=== PATIENT | female | born 1975 | race Caucasian/White ===

== ENCOUNTER → 2021-05-25 13:50 | Outpatient (CLI) | payer OTHER, SELFPAY ==
--- NOTE | ~2021-05-25 | XR_ITS ---
XR chest 2V DATE: 05/25/2021 14:01 INDICATION: Pre-procedural respiratory examination TECHNIQUE: 2 views COMPARISON: 10/24/2017 PA and lateral views FINDINGS: Normal heart size. No hilar or mediastinal enlargement. No pulmonary infiltrate or consol idation, pulmonary vascular congestion or pleural effusion or pneumothorax. IMPRESSION: Negative Reviewed, dictated and finalized at location B. IMPRESSION: Negative
== END ==
PROVIDERS: PCP Family Medicine; Visit Provider Physician Assistant
DX: Z01.811 Encounter for preprocedural respiratory examination (principal)
CPT/HCPCS: 71046

== ENCOUNTER 2022-05-03 14:52 | Emergency (ER) | payer OTHER, SELFPAY ==
[2022-05-03 15:00] VITALS: BP 141/79; PULSE 103; RESP 18; TEMP 36.3; O2SAT 97
--- NOTE | 2022-05-03 15:08 | ED.EAR ---
HPI - Ear Problem General Chief complaint: Ear Stated complaint: Ear Pain Time Seen by Provider: 05/03/22 15:08 Source: patient and RN notes reviewed Mode of arrival: ambulatory Limitations: no limitations History of Present Illness HPI Narrative: 46-year-old female presents to the [facility] with complaints of cannot hear out of both ears. Had recently seen primary care provider and was prescribed prednisone. States has not gotten any better. Patient states that she was instructed by her primary care doctor that if she was not better to come to the [facility]. Related Data Allergies Allergy/AdvReac Type Severity Reaction Status Date / Time No Known Allergies Allergy Verified 05/03/22 15:04 Review of Systems Review of Systems: All systems reviewed & are unremarkable except as noted in HPI and below Constitutional: Constitutional: Reports no additional constitutional complaints, Denies chills and Denies fever(s) Eyes: Eyes: Reports no additional eye complaints ENT: Reports as per HPI Cardiovascular: Cardiovascular: Reports no additional cardiovascular complaints Respiratory: Respiratory: Reports no additional respiratory complaints Gastrointestinal: Gastrointestinal: Reports no additional gastrointestinal complaints Musculoskeletal: Musculoskeletal: Reports no additional musculoskeletal complaints Integumentary/Breasts: Skin/Breast: Reports system reviewed and no additional complaints, except as docu Neurologic: Reports system reviewed and no additional complaints, except as documented Psychiatric: Psychiatric: Reports no additional psychiatric complaints Allergic/Immunologic: Allergic/Immunologic: Reports no additional allergic/immunologic complaints PMF Past Medical History Medical History Depression GERD (gastroesophageal reflux disease) Obese Psoriasis Rash Smoking Surgical History Surgical History (Updated 05/03/22 @ 15:36 by Michaela Fine APRN) No history of previous surgery Social History Social History Social History: Smoking packs per day: 0.5 Smoking cigarettes per day: 10.0 Years smoked: 0.5 Smoking pack-years: 0.25 Smoking status: Current every day smoker Tobacco type: cigarettes Alcohol intake: never Substance use: never Substance use type: does not use Gender identity (if verbalized by the patient): Female Sexual Orientation (if Verbalized by the Patient): Straight or Heterosexual Spiritual care concerns: No Comments At the time of my signature, I reviewed and agree with the nursing past medical, surgical, social, and family history. There is no relevant family history pertinent to the patient complaint. Exam Const: General: healthy appearing, no acute distress and alert Nutritional Appearance: well nourished Orientation/consciousness: patient oriented x3 Limitations: no limitations HENMT: Head: normal to inspection Ears: external ears normal, Abnormal EAC present cerumen impaction on the right and TM abnormal bulging bilateral and with fluid behind the TM bilateral; not erythematous Mouth: Yes Normal oral and palatal mucosa present Throat: posterior oropharynx normal Eyes: General: appearance normal, both eyes and all related structures Pupils: Equal, round and reactive pupils present Neck: Neck: normal visual inspection, no lymphadenopathy and no meningeal signs Chest: Chest palpation & inspection: normal inspection of the chest Resp: Effort & Inspection: normal respiratory effort and no use of accessory muscles Auscultation: clear to auscultation bilaterally, no crackles, no rales, no rhonchi and no wheezes Cardio: Rate: regular rate Rhythm: regular rhythm GI: GI Palp: Yes Soft to palpation and No Tenderness to palpation present (GI) Back/Spine/Pelvis: Cervical Spine: normal cervical lordosis Thoracic/Lumbar Spine: thoracic and lumbar spine normal to inspection Skin:
== END 2022-05-03 15:45 | disposition home or self-care (01) ==
PROVIDERS: Emergency Provider Nurse Practitioner; PCP Family Medicine
DX: H61.21 Impacted cerumen, right ear (principal); H69.93 Unspecified Eustachian tube disorder, bilateral; K21.9 Gastro-esophageal reflux disease without esophagitis; E66.9 Obesity, unspecified; Z68.43 Body mass index [BMI] 50.0-59.9, adult; F17.210 Nicotine dependence, cigarettes, uncomplicated; F32.A Depression, unspecified
CPT/HCPCS: 69209; 99213; G0463

== ENCOUNTER 2022-11-21 16:35 | Emergency (ER) | payer OTHER, SELFPAY ==
--- NOTE | ~2022-11-21 | CT_ITS ---
EXAMINATION: CT soft tissue neck w con DATE: 11/21/2022 20:26 INDICATION: Sore throat. TECHNIQUE: Computed tomography (CT) of the neck was performed with 75 mL Omnipaque-350 intravenous co ntrast. Automated exposure control and iterative reconstruction technique were employed. The dose-demarco gth product was 641.93 mGy-cm. COMPARISON: None FINDINGS: There is bilateral internal jugular chain lymphadenopathy. For example, a right mid interna l jugular chain node measures 1.7 x 2.4 cm. There is enlargement of the adenoids, palatine tonsils, a nd lingual tonsils. No abscess. There is mild mucosal thickening in the paranasal sinuses. There are bilateral otomastoid effusions. There is a carious lesion of tooth 31. There is mild cervical spondyl osis. IMPRESSION: 1. Enlargement of the adenoids, palatine tonsils, and lingual tonsils. No abscess. 2. Bilateral cervical lymphadenopathy. 3. Bilateral otomastoid effusions. 4. Carious lesion of tooth 31. Reviewed, dictated and finalized at location A. R OBSERVER IMPRESSION: 1. Enlargement of the adenoids, palatine tonsils, and lingual tonsils. No absce ss. 2. Bilateral cervical lymphadenopathy. 3. Bilateral otomastoid effusions. 4. Carious lesion of tooth 31.
--- NOTE | ~2022-11-21 | XR_ITS ---
EXAMINATION: XR chest 2V Exam Date/Time: 11/21/2022 16:45 PRINCIPAL LAW CLERK HISTORY: Cough/SOB x 3days. Comparison: 05/25/2021. RESULT: Lines, tubes, and devices: None. Lungs and pleura: Subtle reticular mid and lower lung opacities with cuffing. Cardiomediastinal silhouette: Stable. Other: No acute osseous or upper abdominal finding. IMPRESSION: Pulmonary opacities may represent bronchiolitis, as can be seen with atypical infection, asthma, aspi ration, and small airways disease. Reviewed, dictated and finalized at location K. CIPAL LAW CLERK IMPRESSION: Pulmonary opacities may represent bronchiolitis, as can be seen with atypical i nfection, asthma, aspiration, and small airways disease.
[2022-11-21 16:36] VITALS: BP 140/87; PULSE 94; RESP 22; TEMP 35.9; O2SAT 98
--- NOTE | 2022-11-21 16:37 | ECG_ITS ---
Measurements Intervals [place] Rate: 94 P: 32 LA: 126 QRS: 47 QRSD: 94 T: 36 QT: 341 QTc: 428 Interpretive Statements SINUS RHYTHM LOW QRS VOLTAGE IN PRECORDIAL LEADS [QRS DEFLECTION < 1.0 mV IN CHEST LEADS] ABNORMAL ECG NO PREVIOUS ECG AVAILABLE FOR COMPARISON Electronically Signed On 11-22-2022 10:02:40 NUCLEAR POWERPLANT MECHANIC by Rommel Davison M.D.
[2022-11-21 16:51] LABS: Basophils Percent Auto 0.3 % (0.2-1.2); Eosinophils Absolute Auto 0.4 K/mm3 (0-0.3); Eosinophils Percent Auto 2.7 % (0-4.4); Hematocrit 38.4 % (37.0-47.0); Hemoglobin 11.7 g/dL (12.0-15.0); Immature Granulocyte Absolute 0.09 K/mm3 (0.00-0.031); Immature Granulocyte Percent A 0.6 % (0-0.5); Lymphocytes Percent Auto 9.7 % (18.3-44.2); Mean Corpuscular HGB Conc 30.5 g/dl (32-36); Mean Corpuscular Volume 88.7 fl (80-100); Mean Platelet Volume 11.4 fl (7.4-10.4); Monocytes Absolute Auto 0.9 K/mm3 (0.1-0.6); Neutrophils Absolute Auto 12.5 K/mm3 (1.3-6.7); Neutrophils Percent Auto 80.7 % (45.5-73.1); Platelet Count Result 306 k/mm3 (150-375); Red Blood Count 4.33 M/mm3 (4.2-5.4); Red Cell Distribution Width 17.3 % (11.5-14.5); White Blood Count 15.5 K/mm3 (4.5-10.0)
[2022-11-21 17:01] LABS: Alanine Aminotransferase 25 U/L (6-35); Albumin Level 3.7 g/dL (3.5-5.1); Alkaline Phosphatase 104 U/L (38-126); Anion Gap 6 mmol/L (8-16); Aspartate Amino Transferase 25 U/L (14-36); Bilirubin,Total 0.3 mg/dL (0.2-1.3); Blood Urea Nitrogen 9 mg/dL (7-17); Calcium 8.5 mg/dL (8.4-10.2); Carbon Dioxide 28 mmol/L (22-30); Chloride 106 mmol/L (98-107); Estimated CRCL calculation 95 ml/min; Estimated Glomerular Filt Rate > 60; Glucose 123 mg/dL (65-110); Potassium 4.2 mmol/L (3.4-5.0); Sodium 140 mmol/L (137-145)
--- NOTE | 2022-11-21 19:39 | ED.SOB ---
HPI - SOB/Dyspnea General Chief Complaint: Shortness of Breath/Dyspnea Stated Complaint: SOB Time Seen by Provider: 11/21/22 19:10 Source: patient and RN notes reviewed Mode of arrival: ambulatory Limitations: no limitations History of Present Illness HPI Narrative: This is a 47 year old female with history of obesity and asthma who presents for evaluation of URI symptoms and shortness of breath. Patient states she developed sinus congestion, sore throat, cough for 3 days. She also reports right ear pain. She states she has been in bed for 3 days due to not feeling well. She reports shortness of breath. She states it is due to throat swelling and congestion. She denies chest pain. She has been taking mucinex and using albuterol nebs without relief. She denies any sick contacts. Related Data Allergies Allergy/AdvReac Type Severity Reaction Status Date / Time No Known Allergies Allergy Verified 05/03/22 15:04 Review of Systems Constitutional: Constitutional: Reports fatigue and Denies weakness ENT: Reports nasal congestion and Reports sore throat Cardiovascular: Cardiovascular: Denies syncope, Denies rapid heart rate, Denies irregular heart rhythm, Denies leg edema and Denies dyspnea Respiratory: Respiratory: Denies chest congestion, Reports cough, Denies hemoptysis, Denies excessive phlegm production and Reports dyspnea Gastrointestinal: Gastrointestinal: Denies abdominal pain, Denies hematochezia, Denies diarrhea and Denies vomiting Genitourinary: Genitourinary: Denies hematuria and Denies dysuria Musculoskeletal: Musculoskeletal: Denies joint swelling, Denies loss of height and Denies muscle weakness Neurologic: Denies syncope, Denies focal weakness and Denies weakness PMFSH Past Medical History Medical History Asthma Depression GERD (gastroesophageal reflux disease) Obese Psoriasis Rash Smoking Surgical History Surgical History No history of previous surgery Social History Social History Social History: Smoking packs per day: 0.5 Smoking cigarettes per day: 10.0 Years smoked: 0.5 Smoking pack-years: 0.25 Smoking status: Current every day smoker Tobacco type: cigarettes Alcohol intake: never Substance use: never Substance use type: does not use Living arrangements: with family Occupation/Education: unemployed Gender identity (if verbalized by the patient): Female Sexual Orientation (if Verbalized by the Patient): Straight or Heterosexual Spiritual care concerns: No Exam Const: General: alert Nutritional Appearance: obese Orientation/consciousness: patient oriented x3 Limitations: no limitations HENMT: Head: normal to inspection Ears: TM abnormal erythematous on the right Face and sinus: normal facial exam and sinuses nontender Mouth: Yes Abnormal oral and palatal mucosa present edematous Teeth and gingiva: dentition normal Throat: uvula midline and abnormal tonsil bilateral erythema and hypertrophy Eyes: EOM: EOMs intact bilaterally Neck: Neck: lymphadenopathy Chest: Chest palpation & inspection: normal inspection of the chest Resp: Effort & Inspection: normal respiratory effort Auscultation: clear to auscultation bilaterally Cardio: Rate: regular rate Rhythm: regular rhythm Heart sounds: no murmurs GI: GI Palp: Yes Soft to palpation, No Tenderness to palpation present (GI), No Guarding due to palpation present (GI) and No Rigid due to palpation Auscultation: normal bowel sounds Skin: General skin exam: normal color Rashes: no rashes Wounds: no wounds Neuro: General: patient oriented x3, moves all extremities and CN's II-XI intact bilaterally Extrem: General: normal to inspection Psych: Mental Status: mental status grossly normal Affect: normal affect Attitude: cooperative Course Course Emergency Course: Patient pr
[2022-11-21] MEDS: KETOROLAC 30 MG/ML VIAL (*BKC) IV PUSH (19:59)
[2022-11-21 20:14] LABS: Alveolar/Arterial O2 Gradient 21.6 mmHg; Base Excess ABG 1.9 mEq/l (+/-2.0); Carboxyhemoglobin 1.4 % THb (0-2.0); Fractional Inspired Oxygen 21 %; HCO3 ABG 25.8 mEq/l (22.0-26.0); Oxygen Content ABG 16.6 %vol (16.0-22.0); Oxygen Saturation ABG 96.6 % (95.0-100.0); PCO2 ABG 38.1 mmHg (35.0-45.0); PO2 ABG 82.5 mmHg (80.0-100.0); PO2 FiO2 Ratio Arterial Blood 3.93 %; Reduced Hemoglobin 3.6 %THb (0-5.0); Total Hemoglobin 12.4 g/dL (12.0-18.0); pH ABG 7.449 (7.350-7.450)
[2022-11-21 20:15] LABS: Device ROOM AIR; Modified Allen's Test Pass; Site Drawn RIGHT RADIAL
[2022-11-21 20:18] LABS: Strep Group A RT-PCR DETECTED (Negative)
[2022-11-21 20:33] LABS: Influenza A QL RT-PCR Negative (Negative); Influenza B QL RT-PCR Negative (Negative); RSV RNA, RT-PCR Negative (Negative); SARS-CoV-2 RNA PCR Negative
--- NOTE | 2022-11-21 20:48 | PC.NURSE ---
Pt reports nasal congestion that started 3 days ago. She has since developed fullness in her ears, decreased hearing more so than normal, and sore throat and swallowing difficulty. Voice is hoarse. Pt is maintaining her own secretions and no drooling noted.
[2022-11-21] MEDS: cefTRIAXone 2 GM in SODIUM CHLORIDE 0.9% IV 100 ML 200 ML IVPB (20:56)
[2022-11-21 21:55] VITALS: BP 115/79; PULSE 90; RESP 20; O2SAT 97
== END 2022-11-21 22:08 | disposition home or self-care (01) ==
PROVIDERS: Emergency Medicine; Emergency Provider General Practice; PCP Family Medicine
DX: J02.0 Streptococcal pharyngitis (principal); H66.91 Otitis media, unspecified, right ear; Z20.822 Contact with and (suspected) exposure to COVID-19
CPT/HCPCS: 36415; 36600; 70491; 71046; 80053; 82375; 82805; 83050; 85025; 87040; 87637; 87651; 93005; 96372; 96374; 96375; 99284; J1100; J1885; Q9967

== ENCOUNTER 2024-01-14 17:34 | Emergency (ER) | payer MEDICAID, SELFPAY ==
--- NOTE | ~2024-01-14 | XR_ITS ---
EXAMINATION: XR chest 2V DATE: 01/14/2024 18:24 INDICATION: Nonproductive cough TECHNIQUE: PA and lateral views of the chest are obtained. COMPARISON: 11/21/2022 FINDINGS: The lungs are free of acute opacities. No pleural effusion or pneumothorax. The cardiomedia stinal silhouette is normal. There is mild thoracic spondylosis. IMPRESSION: 1. No acute cardiopulmonary abnormality. Reviewed, dictated and finalized at location F.
[2024-01-14 17:46] VITALS: BP 136/66; PULSE 82; RESP 16; TEMP 36.6; O2SAT 99
[2024-01-14 17:48] VITALS: BP 136/66; PULSE 82; RESP 16; TEMP 36.6; O2SAT 99
--- NOTE | 2024-01-14 18:11 | ED.GENADULT ---
HPI - General Adult General Chief complaint: Upper Respiratory Infection Stated complaint: SOB,sore throat Source: patient Mode of arrival: ambulatory Limitations: no limitations History of Present Illness HPI narrative: Patient presents for evaluation of sick symptoms for last 2 days. Symptoms include cough, shortness of breath, sinus congestion, yellow nasal drainage and sore throat. No fever, chills, nausea, vomiting, diarrhea. She has an underlying history of asthma and smokes half a pack per day. She has decreased her cigarette use over the last few days secondary to frequent coughing. No recent sick contacts to her knowledge. She has a history of recurrent strep pharyngitis. She also has underlying DANY for which she uses a CPAP. Related Data Home Medications Medication Instructions Recorded Confirmed hydroxyzine HCl 25 mg tablet 25 mg PO BID 09/10/23 01/14/24 Allergies Allergy/AdvReac Type Severity Reaction Status Date / Time No Known Allergies Allergy Verified 10/09/23 13:02 Review of Systems Review of Systems: CONSTITUTIONAL: Denies fever, chills, or sweats. EYES: Denies visual changes, redness, or discharge. ENT: Reports sore throat, sinus congestion and yellow nasal discharge. Denies otalgia CARDIOVASCULAR: Denies chest pain, palpitations, or edema. RESPIRATORY: reports cough and shortness of breath. GASTROINTESTINAL: Denies abdominal pain, nausea, vomiting, or diarrhea. GENITOURINARY: Denies dysuria or hematuria. SKIN: Denies rash or itching. MUSCULOSKELETAL: Denies back pain, joint pain, or myalgia. NEUROLOGIC: Denies headache, numbness, dizziness, or weakness. PSYCHIATRIC: Denies anxiety or depression. [facility] Past Medical History Medical History Asthma Depression GERD (gastroesophageal reflux disease) Obese Psoriasis Rash Smoking Surgical History Surgical History No history of previous surgery Family History Family History Mother Unknown family medical history Social History Social History Social History: Smoking packs per day: 0.5 Smoking cigarettes per day: 10.0 Years smoked: 0.5 Smoking pack-years: 0.25 Smoking status: Current every day smoker Tobacco type: cigarettes Alcohol intake: never Substance use: never Substance use type: does not use Living arrangements: with family Occupation/Education: unemployed Gender identity (if verbalized by the patient): Female Sexual Orientation (if Verbalized by the Patient): Straight or Heterosexual Spiritual care concerns: No Exam Narrative: GENERAL: Well-appearing, well-nourished, and in no acute distress. HEAD: Normocephalic, atraumatic. EYES: PERRLA and EOMI. ENT: Nares clear, no rhinorrhea or epistaxis. Mucous membranes moist. There is posterior pharyngeal erythema without exudate. Uvula is midline. Bilateral TMs pearly helms nonbulging NECK: Supple. No adenopathy or masses. No carotid bruits or JVD. Large neck circumference. CHEST: Clear to auscultation. No respiratory distress. No wheezes rales or rhonchi HEART: Regular rate and rhythm. No murmur heard. Normal peripheral pulses. ABDOMEN: Soft, nontender, nondistended, normal active bowel sounds. EXTREMITIES: Normal range of motion. No edema. SKIN: Warm, dry, no rash. NEURO: No focal deficits. Alert and oriented x3. PSYCH: Normal mood and affect. Course Course Emergency Course: this is a 48-year-old female who presented for evaluation of sick symptoms. Strep negative. Chest x-ray negative. Given Decadron while here. exam is consistent with asthma triggered by viral URI. Will discharge with prednisone and albuterol. Increase hydration. Advised on smoking cessation. Follow up with primary provider. Go to the ER for worsening sym
[2024-01-14] MEDS: dexAMETHasone SOD PHOS INJ 10 MG/ML 1 ML VIAL BY MOUTH (18:17)
== END 2024-01-14 19:20 | disposition home or self-care (01) ==
PROVIDERS: Emergency Provider Nurse Practitioner; PCP Family Medicine
DX: J45.909 Unspecified asthma, uncomplicated (principal); J06.9 Acute upper respiratory infection, unspecified; G47.33 Obstructive sleep apnea (adult) (pediatric); F17.210 Nicotine dependence, cigarettes, uncomplicated; K21.9 Gastro-esophageal reflux disease without esophagitis; E66.9 Obesity, unspecified; Z68.43 Body mass index [BMI] 50.0-59.9, adult; L40.9 Psoriasis, unspecified
CPT/HCPCS: 71046; 87081; 87880; 99213; G0463; J1100

== ENCOUNTER 2025-02-23 11:29 | Outpatient (CLI) | payer OTHER, SELFPAY ==
--- NOTE | ~2025-02-23 | XR_ITS ---
3 VIEWS LUMBAR SPINE Ordering provider: Josh Rodriguez, [place] History: . Lbp . Comparison: None. FINDINGS: VERTEBRAL BODIES: No visible fracture or subluxation. DISK SPACES: Normal. SOFT TISSUES: Normal. IMPRESSION: No acute osseous abnormality lumbar spine. Reviewed, dictated and finalized at location A.
== END 2025-02-23 11:30 | disposition home or self-care (01) ==
LOC: MICIMG 11:31
PROVIDERS: PCP Family Medicine; Visit Provider Chiropractor Rehabilitation
DX: M54.50 Low back pain, unspecified (principal)
CPT/HCPCS: 72100

== ENCOUNTER 2025-03-12 14:17 | Emergency (ER) | payer OTHER, SELFPAY ==
[2025-03-12] VITALS (10 sets, daily range): BP systolic 110–138; BP diastolic 65–90; PULSE 67–77; RESP 15–24; TEMP 36.5–36.7; O2SAT 88–96
--- NOTE | ~2025-03-12 | XR_ITS ---
EXAMINATION: XR chest 2V 03/12/2025 15:17 INDICATION: Shortness of breath PROCEDURE: 2 view chest COMPARISON: Comparison to multiple prior studies sequentially, with oldest reviewed study dated 01/2019. FINDINGS: The lungs are clear. The cardiomediastinal silhouette is within normal limits. There are no pleural effusions. There is no pneumothorax suspected. IMPRESSION: 1: NO ACUTE CARDIOPULMONARY DISEASE. Reviewed, dictated and finalized at location B.
--- OUTSIDE RECORDS SUMMARY | 2025-03-12 14:20 | XMS_ITS | Clinical Summary ---
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
--- OUTSIDE RECORDS SUMMARY | 2025-03-12 14:20 | XMS_ITS | Clinical Summary ---
Author Organization [facility] Address [address] [place] [address] Care Team Providers Care Welder Gun Name Role Phone Misha Ann MD Primary Care Provider [phone] Allergies No known active allergies Medications No known medications Active Problems No known active problems Family History Medical History Relation Name Comments Heart Disease Father Heart Disease Mother Cancer Sister 1 Relation Name Status Comments Brother Alive Father Mother Alive Sister 1 Alive Sister 2 Alive Social History Tobacco Use Types Packs/Day Years Used Date Smoking Tobacco: Every Day Cigarettes 1 30 Smokeless Tobacco: Never Alcohol Use Standard Drinks/Week Comments Never 0 (1 standard drink = 0.6 oz pur e alcohol) Comments Unknown Sex and Gender Information Value Date Recorded Sex Assigned at Not on file Legal Sex Female 9:31 AM CDT Gender Identity Not on file Sexual Orientation Not on file Last Filed Vital Signs Vital Sign Reading Time Taken Comments Blood Pressure 126/78 08/17/2019 1:31 PM CDT Pulse 87 08/17/2019 1:31 PM CDT Temperature 36.8 C (98.2 F) 08/17/2019 1:31 PM CDT Respiratory Rate - - Oxygen Saturation 97% 08/17/2019 1:31 PM CDT Inhaled Oxygen Concentration - - Weight 126.6 kg (279 lb) 08/17/2019 1:31 PM CDT Height 152.4 cm (5') 08/17/2019 1:31 PM CDT Body Mass Index 54.49 08/17/2019 1:31 PM CDT Plan of Treatment Health Maintenance Due Date Last Done Comments DTAP/TDAP/TD VACCINES (1 - Tdap) 1996 HEPATITIS B VACCINES (1 of 3 - 19+ 3-dose series) 05/22 HPV/Cotest (21-29) 1998 CERVICAL CANCER SCREENING 2007 HPV/Cotest (30-65) 2007 PAP SMEAR 2007 BREAST CANCER SCREENING 2017 COLORECTAL SCREENING 2022 Colorectal Cancer Screening 2022 FIT-DNA Q 3 years 2022 FIT/FOBT Q 1 year 2022 Flex Sig/CT Colonography Q 5 years 2022 INFLUENZA VACCINE (#1) 2024 Care Teams Welder Gun Relationship Specialty Start Date End Date Misha Ann MD [address] [facility] [address] [place] [id number] PCP - General Family Practice 07/23/19
--- OUTSIDE RECORDS SUMMARY | 2025-03-12 14:20 | XMS_ITS | Clinical Summary ---
Author Organization [facility] [employer] Address [address] [place] [address] Care Team Providers Care Ground Services Instructor Name Role Phone Unavailable Primary Care Provider Unavailabl e Source Comments [facility] [employer],non-owned Affiliates and Associated Physician Practices is amultiple site organization consisting of ambulatory clinics and hospital sitesin [place], [place], [place] and [place]. This disclosure is being madepursuant to the Care Everywhere program and may not contain all information available regarding this patient. Last updated 18.[facility] [employer] Social History Tobacco Use Types Packs/Day Years Used Date Smoking Tobacco: Every Day Cigarettes Alcohol Use Standard Drinks/Week Comments No 0 (1 standard drink = 0.6 oz pur e alcohol) Comments Unknown Sex and Gender Information Value Date Recorded Sex Assigned at Not on file Legal Sex Female 6:39 PM HEALTH RECORDS TECHNOLOGY TEACHER Gender Identity Not on file Sexual Orientation Not on file Last Filed Vital Signs Vital Sign Reading Time Taken Comments Blood Pressure 114/66 10/13/2013 8:08 PM HEALTH RECORDS TECHNOLOGY TEACHER Pulse 93 10/13/2013 8:16 PM HEALTH RECORDS TECHNOLOGY TEACHER Temperature 35.3 C (95.6 F) 10/13/2013 8:20 PM HEALTH RECORDS TECHNOLOGY TEACHER Respiratory Rate 16 10/13/2013 6:35 PM HEALTH RECORDS TECHNOLOGY TEACHER Oxygen Saturation 99% 10/13/2013 8:16 PM HEALTH RECORDS TECHNOLOGY TEACHER Inhaled Oxygen Concentration - - Weight 102.1 kg (225 lb) 10/13/2013 6:35 PM HEALTH RECORDS TECHNOLOGY TEACHER Height 152.4 cm (5') 10/13/2013 6:35 PM HEALTH RECORDS TECHNOLOGY TEACHER Body Mass Index 43.94 10/13/2013 6:35 PM HEALTH RECORDS TECHNOLOGY TEACHER Plan of Treatment Health Maintenance Due Date Last Done Comments COLOGUARD (AGES 45-75) - COL ON CA SCREENING 1977 COLON MONITORING 1977 COLONOSCOPY - COLON CA SCREENING 1977 CT COLONOGRAPHY - COLON CA SCREENING 1977 Colorectal Cancer Screening 1977 FIT - COLON CA SCREENING 1977 FLEX SIG - COLON CA SCREENING 1977 LIPID TESTING 1977 MAMMOGRAM 1977 HIV SCREENING 1992 HEPATITIS C SCREENING 06/12/1995 DTAP/TDAP/TD VACCINES (1 - Tdap) 1996 HEPATITIS B VACCINE (1 of 3 - 19+ 3-dose series) 1996 COVID-19 VACCINE (1 - 2023-2 5 season) 2024 DEPRESSION SCREENING 10/21/2024 INFLUENZA VACCINE (Season Ended) 2025 ZOSTER VACCINE (1 of 2) 2027 HIB VACCINE Aged Out No longer eligi ble based on patient's age to complete this topic HPV VACCINE Aged Out No longer eligi ble based on patient's age to complete this topic MENINGOCOCCAL (Group B) VACC INE SHARED DECISION-MAKING Aged Out No longer eligibl e based on patient's age to complete this topic MENINGOCOCCAL GROUPS A/C/Y/W VACCINE Aged Out No longer eligible b ased on patient's age to complete this topic PNEUMOCOCCAL VACCINE Aged Out No long er eligible based on patient's age to complete this topic
--- OUTSIDE RECORDS SUMMARY | 2025-03-12 14:20 | XMS_ITS | Referral Summary ---
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
--- NOTE | 2025-03-12 14:22 | ECG_ITS ---
Test Date: 2025-03-12 14:31:41 Measurements Intervals [place] Rate: 77 P: 30 DC: 140 QRS: 50 QRSD: 88 T: 25 QT: 364 QTc: 412 Interpretive Statements SINUS RHYTHM LOW QRS VOLTAGE IN PRECORDIAL LEADS [QRS DEFLECTION < 1.0 mV IN CHEST LEADS] No previous ECG available for comparison Electronically Signed On 03-13-2025 17:05:00 CDT by David Biswas M.D.
[2025-03-12 14:40] LABS: Basophils Percent Auto 0.4 % (0.2-1.2); Eosinophils Absolute Auto 0.3 K/mm3 (0-0.3); Eosinophils Percent Auto 3.3 % (0-4.4); Hemoglobin 13.5 g/dL (12.0-15.0); Immature Granulocyte Absolute 0.07 K/mm3 (0.00-0.031); Immature Granulocyte Percent A 0.8 % (0-0.5); Lymphocytes Absolute Auto 1.82 K/mm3 (0.9-3.2); Lymphocytes Percent Auto 20.1 % (18.3-44.2); Mean Corpuscular HGB Conc 30.7 g/dl (32-36); Mean Corpuscular Hemoglobin 28.5 pg (26-34); Mean Platelet Volume 10.9 fl (7.4-10.4); Monocytes Absolute Auto 0.8 K/mm3 (0.1-0.6); Monocytes Percent Auto 8.6 % (2.6-8.5); Neutrophils Percent Auto 66.8 % (45.5-73.1); Platelet Count Result 275 k/mm3 (150-375); Red Blood Count 4.73 M/mm3 (4.2-5.4); Red Cell Distribution Width 17.6 % (11.5-14.5)
[2025-03-12 15:07] LABS: Alanine Aminotransferase 45 U/L (6-35); Albumin Level 3.9 g/dL (3.5-5.1); Alkaline Phosphatase 80 U/L (38-126); Anion Gap 7 mmol/L (4-12); Aspartate Amino Transferase 48 U/L (14-36); Bilirubin,Total 0.8 mg/dL (0.2-1.3); Blood Urea Nitrogen 9 mg/dL (7-17); Calcium 8.7 mg/dL (8.4-10.2); Carbon Dioxide 27 mmol/L (22-30); Chloride 104 mmol/L (98-107); Estimated CRCL calculation 146 ml/min; Estimated Glomerular Filt Rate > 60; Glucose 101 mg/dL (65-110); Sodium 138 mmol/L (137-145)
[2025-03-12 15:16] LABS: Influenza A QL RT-PCR Negative (Negative); Influenza B QL RT-PCR Negative (Negative); RSV RNA, RT-PCR Negative (Negative); SARS-CoV-2 RNA PCR Negative (Negative)
--- OUTSIDE RECORDS SUMMARY | 2025-03-12 15:31 | XMS_ITS | Clinical Summary ---
Author Organization [facility] Address [address] [place] [address] Care Team Providers Care Rotor Balancer Name Role Phone Misha Ann MD Primary Care Provider [phone] Allergies No known active allergies Medications No [...] 2022 INFLUENZA VACCINE (#1) 2024 Care Teams Rotor Balancer Relationship Specialty Start Date End Date Misha Ann MD [address] [facility] [address] [place] [id number] PCP - General Family Practice 07/23/19
--- OUTSIDE RECORDS SUMMARY | 2025-03-12 15:31 | XMS_ITS | Clinical Summary ---
Author Organization [facility] [place] [address] 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
--- OUTSIDE RECORDS SUMMARY | 2025-03-12 15:31 | XMS_ITS | Clinical Summary ---
Author Organization [facility] [employer] Address [address] [place] [address] Care Team Providers Care Project Management Engineer Name Role Phone Unavailable Primary Care Provider Unavailabl e Source Comments [facility] [employer],non-owned Affiliates and Associated Physician Practices is amultiple site organization consisting of ambulatory clinics and hospital sitesin [place], [place], [place] and [place]. This disclosure is being madepursuant to the Care Everywhere program and may not contain all information available regarding this patient. 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
--- OUTSIDE RECORDS SUMMARY | 2025-03-12 15:31 | XMS_ITS | Referral Summary ---
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
[2025-03-12] MEDS: IPRATROPIUM 0.5 MG/ALBUTEROL SULFATE 2.5 MG AMPUL.NEB 3 ML INHALATION (15:36)
--- NOTE | 2025-03-12 16:44 | ED_ITS ---
HPI - SOB/Dyspnea General Chief Complaint: Shortness of Breath/Dyspnea Stated Complaint: Shortness of breath x 3-4 days Time Seen by Provider: 03/12/25 14:58 History of Present Illness HPI Narrative: Pt presents with sob with exertion for quite awhile but getting worse. Pt has no chest pain with SOB but has some brief intermittent CP at times. Pt not sure if has swelling to legs. Pt denies cough or fever. Related Data Allergies Allergy/AdvReac Type Severity Reaction Status Date / Time No Known Allergies Allergy Verified 03/12/25 14:18 Review of Systems 2 Review of Systems: All systems reviewed & are unremarkable except as noted in HPI and below PMFSH Past Medical History Medical History Asthma Obese GERD (gastroesophageal reflux disease) Psoriasis Rash Smoking Depression Surgical History Surgical History No history of previous surgery Family History Family History Mother Unknown family medical history Social History Social History Social History: Smoking packs per day: 0.5 Smoking cigarettes per day: 10.0 Years smoked: 0.5 Smoking pack-years: 0.25 Smoking status: Current every day smoker Tobacco type: cigarettes Alcohol intake: never Substance use: never Substance use type: does not use Living arrangements: with family Occupation/Education: unemployed Gender identity (if verbalized by the patient): Female Sexual Orientation (if Verbalized by the Patient): Straight or Heterosexual Spiritual care concerns: No Exam 2 Const: General: healthy appearing and no acute distress Nutritional Appearance: obese Orientation/consciousness: patient oriented x3 L imitations: no limitations Resp: Effort & Inspection: normal respiratory effort Auscultation: clear to auscultation bilaterally Cardio: Rate: regular rate Rhythm: regular rhythm GI: GI Palp: Yes Soft to palpation and No Tenderness to palpation present (GI) Auscultation: normal bowel sounds Skin: General skin exam: normal color Wounds: no wounds Neuro: General: patient oriented x3, moves all extremities and no focal motor deficits Speech: normal speech Extrem: General: edema Psych: Mental Status: mental status grossly normal Course Vital Signs Vital signs: Vital Signs Respiratory Rate 24 H 03/12/25 14:23 Blood Pressure 134/80 03/12/25 14:23 Pulse Oximetry 96 03/12/25 14:23 Oxygen Delivery Room Air 03/12/25 14:23 Temperature 97.8 F 03/12/25 17:01 Pulse Rate 72 03/12/25 17:56 Respiratory Rate 20 03/12/25 17:56 Blood Pressure 127/81 03/12/25 17:56 Pulse Oximetry 96 03/12/25 17:56 Oxygen Delivery Room Air 03/12/25 14:33 MDM - SOB/Dyspnea MDM Narrative Medical decision making narrative: Pt presents with sob and swelling to legs for awhile. Pt denies Cp. will get labs and ekg and cxr to rule out chf or pneumonia. not likely PE. ekg and labs and cxr unremarkable will give dose of lasix here and two pills for home. Lab Data 03/12/25 14:30 03/12/25 14:30 Labs: Lab Results 03/12/25 03/12/25 Range/Units 14:30 17:05 WBC 9.0 (4.5-10.0) K/mm3 RBC 4.73 (4.2-5.4) M/mm3 Hgb 13.5 (12.0-15.0) g/dL Hct 44.0 (37.0-47.0) % MCV 93.0 (80-100) fl MCH 28.5 (26-34) pg MCHC 30.7 L (32-36) g/dl RDW 17.6 H (11.5-14.5) % Plt Count 275 (150-375) k/mm3 MPV 10.9 H (7.4-10.4) fl Immature Gran % (Auto) 0.8 H (0-0.5) % Neut % (Auto) 66.8 (45.5-73.1) % Lymph % (Auto) 20.1 (18.3-44.2) % [place] % (Auto) 8.6 H (2.6-8.5) % Eos % (Auto) 3.3 (0-4.4) % Baso % (Auto) 0.4 (0.2-1.2) % Lymph # (Auto) 1.82 (0.9-3.2) K/mm3 [place] # (Auto) 0.8 H (0.1-0.6) K/mm3 Eos # (Auto) 0.3 (0-0.3) K/mm3 Baso # (Auto) 0.0 (0.0-0.1) K/mm3 Abs Immat Gran (auto) 0.07 H (0.00-0.031) K/mm3 Absolute Neuts (auto) 6.0 (1.3-6.7) K/mm3 Absolute Nucleated RBC 0.000 (0.0-0.012) K/mm3 Nucleated RBC % 0.0 (0.0-0.2) % Sodium 138 (137-145) mmol/L Potassium 5.0 (3.4-5.0) mmol/L Chloride 104 (98-107) mmol/L Carbon Dioxide 27 (22-30) mmol/L Anion Gap 7 (4-12) mmol/L BUN 9 (7-17) mg/dL Creatinine 0.58 L (0.7-1.0) mg/dL Estim Creat Clear Calc 146 ml/min Estimated GFR > 60 (59 - ) Glucose 101 (65-110) mg/dL Calcium 8.7 (8.4-10.2) mg/dL Total Bilirubin 0.8 (0.2-1.3) mg/dL AST 48 H (14-36) U/L ALT 45 H (6-35) U/L Alkaline Phosphatase 80 (38-126) U/L Troponin I < 0.012 (0.000-0.034) ng/mL Total Protein 8.0 (6.3-8.2) g/dL Albumin 3.9 (3.5-5.1) g/dL Influenza A (RT-PCR) Negative (Negative) Influenza B (RT-PCR) Negative (Negative) RSV (RT-PCR) Negative (Negative) SARS-CoV-2 RNA (RT-PCR) Negative (Negative) Discharge Plan Discharge Clinical Impression: Exertional shortness of breath Patient Disposition: Home Condition: Improved Instructions: Antibiotic Form, Dyspnea (ED) Patient Language: Cymraes Prescriptions: New furosemide [Lasix] 20 mg tablet 20 mg PO DAILY Qty: 2 0RF albuterol sulfate 1.25 mg/3 mL solution for nebulization 1.25 mg inhalation Q4H Qty: 90 0RF No Action albuterol sulfate 2.5 mg /3 mL (0.083 %) solution for nebulization 2.5 mg inhalation Q6H Qty: 90 0RF albuterol sulfate 1.25 mg/3 mL solution for nebulization 1.25 mg inhalation Q4-6H PRN (Reason: shortness of breath or wheezing) Qty: 90 0RF Trelegy Ellipta 100-62.5-25 mcg blister with device 1 inh inhalation Q24H Qty: 60 0RF ferrous sulfate 325 mg (65 mg iron) tablet 325 mg PO .QOD Qty: 45 2RF fluoxetine 40 mg capsule 40 mg PO DAILY Qty: 90 1RF albuterol sulfate 90 mcg/actuation HFA aerosol inhaler See Rx Instructions .ROUTE .COMPLEX Qty: 6.7 2RF Dose Instruction: INHALE 1 PUFF INTO THE LUNGS EVERY 4 HOURS NEEDED FOR SHORTNESS OF BREATH OR WHEEZING Rx Instructions: INHALE 1 PUFF INTO THE LUNGS EVERY 4 HOURS NEEDED FOR SHORTNESS OF BREATH OR WHEEZING Wegovy 0.25 mg/0.5 mL pen injector 0.25 mg subcut WEEKLY Qty: 2 0RF Rx Instructions: administer weeks 1 through 4 of therapy. If tolerating well, call office to increase dose. Follow-up/Referrals: Misha Ann MD [Primary Care Provider] -
--- NOTE | 2025-03-12 17:01 | ECG_ITS ---
Test Date: 2025-03-12 17:01:39 Measurements Intervals [place] Rate: 73 P: 23 UT: 135 QRS: 50 QRSD: 94 T: 17 QT: 397 QTc: 438 Interpretive Statements SINUS RHYTHM LOW QRS VOLTAGE IN PRECORDIAL LEADS [QRS DEFLECTION < 1.0 mV IN CHEST LEADS] INTERPRETATION BASED ON A DEFAULT AGE OF 40 YEARS Compared to ECG 03/12/2025 14:31:41 No significant changes Electronically Signed On 03-13-2025 17:07:21 CDT by David Biswas M.D.
[2025-03-12] MEDS: FUROSEMIDE INJ 40 MG/4 ML VIAL 20 MG IV PUSH (17:31)
[2025-03-12 17:41] LABS: Troponin I < 0.012 ng/mL (0.000-0.034)
[2025-03-12] MEDS: KETOROLAC 15 MG/ML VIAL (*BKC) IV PUSH (17:59)
== END 2025-03-12 18:10 | disposition home or self-care (01) ==
PROVIDERS: Emergency Medicine; Emergency Provider Emergency Medicine; PCP Family Medicine
DX: R06.02 Shortness of breath (principal); Z20.822 Contact with and (suspected) exposure to COVID-19; J45.909 Unspecified asthma, uncomplicated; E66.9 Obesity, unspecified; Z68.44 Body mass index [BMI] 60.0-69.9, adult; K21.9 Gastro-esophageal reflux disease without esophagitis; L40.9 Psoriasis, unspecified; F32.A Depression, unspecified; F17.210 Nicotine dependence, cigarettes, uncomplicated; Z79.85 Long-term (current) use of injectable non-insulin antidiabetic drugs; Z79.899 Other long term (current) drug therapy
CPT/HCPCS: 36415; 71046; 80053; 84484; 85025; 87637; 93005; 94640; 96374; 96375; 99284; J1885; J1938